=== PATIENT | male | born 1940 | race Caucasian/White ===

== ENCOUNTER 2018-03-10 13:50 | Day surgery (SDC) | payer MEDICARE, BC ==
[2018-03-10] MEDS ORDERED: BUPIVACAINE HCL 0.25% MPF 30 ML SOL INFIL ONE (14:31)
[2018-03-10] MEDS ORDERED: DEXAMETHASONE SOD PHOS PF 10 MG/ML SOL IJ ONE (14:31)
[2018-03-10 15:33] VITALS: BP 130/84; PULSE 92; RESP 22; TEMP 98.6; O2SAT 96
== END 2018-03-10 15:25 | disposition home or self-care (01) | DRG 552 ==
LOC: SURG 13:50
PROVIDERS: ATTEND Nurse Anesthetist, Certified Registered
DX: M48.062 Spinal stenosis, lumbar region with neurogenic claudication (principal); E11.9 Type 2 diabetes mellitus without complications
CPT/HCPCS: J1100

== ENCOUNTER 2018-05-12 12:54 | Day surgery (SDC) | payer MEDICARE, BC ==
[2018-05-12] MEDS ORDERED: BUPIVACAINE HCL 0.25% MPF 30 ML SOL INFIL ONE (14:31)
[2018-05-12] MEDS: DEXAMETHASONE SOD PHOS PF 10 MG/ML SOL IJ ONE ×4 (14:41→15:00)
[2018-05-12 15:09] VITALS: RESP 16; TEMP 97.4
[2018-05-12 15:22] VITALS: BP 147/88; PULSE 78; O2SAT 97
== END 2018-05-12 15:30 | disposition home or self-care (01) | DRG 552 ==
LOC: SURG 12:54
PROVIDERS: ATTEND Nurse Anesthetist, Certified Registered
DX: M48.062 Spinal stenosis, lumbar region with neurogenic claudication (principal); E11.9 Type 2 diabetes mellitus without complications
CPT/HCPCS: J1100

== ENCOUNTER 2018-07-01 12:05 | Day surgery (SDC) | payer MEDICARE, BC ==
[2018-07-01 13:00] VITALS: RESP 16
[2018-07-01] MEDS ORDERED: TRIAMCINOLONE ACETONIDE 40 MG/ML SUS ONE (13:14)
[2018-07-01] MEDS ORDERED: BUPIVACAINE HCL 0.25% MPF 30 ML SOL INFIL ONE (13:15)
[2018-07-01 13:45] VITALS: PULSE 101; TEMP 99.2; O2SAT 94
[2018-07-01 13:55] VITALS: BP 164/115
== END 2018-07-01 14:00 | disposition home or self-care (01) | DRG 639 ==
LOC: SURG 12:05
PROVIDERS: ATTEND Nurse Anesthetist, Certified Registered
DX: E11.9 Type 2 diabetes mellitus without complications (principal); M12.9 Arthropathy, unspecified
CPT/HCPCS: J3300